=== PATIENT | female | born 1930 | race Caucasian/White ===

== ENCOUNTER 2016-10-07 09:09 | Emergency (ER) | payer MEDICARE, OTHER ==
[~2016-10-07] VITALS: Ht 149.9 cm; Wt 54.5 kg
[~2016-10-07 09:09] MED LIST: CALC-176 PO; CARV25TA97 PO; CHOL2000 PO; CIPR500T4 PO; CLOP75TA27 PO; DEXL60CA2 PO; DOCU-144 PO; ESCI10TA PO; FER325 PO; GLUC15002 PO; HYDR-3670 PO; METF-382 PO; METR500T PO; OMEG-135 PO; OMEP20CA16 PO; VALS160T20 PO; VITA1TAB2 PO; [UNRECOGNIZED DRUG - CODE] PO
[2016-10-07 09:12] VITALS: Ht 149.9 cm; Wt 54.5 kg
[2016-10-07] MEDS ORDERED: ALBUTEROL/IPRATROPIUM (NEB) 3 ML AMP HHN STA (10:21)
[2016-10-07] MEDS ORDERED: ALBUTEROL 0.083% (NEB) 2.5 MG/3 ML AMP ONE (10:39)
--- NOTE | 2016-10-07 11:25 | RADRPT ---
PROCEDURE: XR Chest. CLINICAL INDICATION: Pneumonia TECHNIQUE: Chest PA and lateral COMPARISON: 11/09/2014 FINDINGS: Sternotomy and CABG The mediastinal structures are unremarkable. There is calcification of the thoracic aorta (consiste nt with atherosclerosis). The heart is normal in size and configuration. The pulmonary vascularity is normal. The lung boyd are unremarkable. No consolidation is identified. The pleural spaces are unremarkable. There are senescent changes of the axial skeleton. IMPRESSION: Calcification of the thoracic aorta (consistent with atherosclerosis). No evidence for active cardiopulmonary disease. RPTAT: HGDB .Juan C Alaniz MD, Date Time Electronically viewed and signed by .Juan C Alaniz MD, on 10/07/2016 11:25 .B/
--- NOTE | 2016-10-07 11:47 | ERD ---
ER Documentation Chief Complaint Date/Time DATE: 10/07/16 TIME: 11:30 Chief Complaint cough, vomitting and body aches all night HPI Pleasant 86-year-old female presenting to emergency department with complaint of cough. Patient reports the cough is dry, spasmatic, worse at night. Patient reports symptoms started 3 weeks ago and have progressed to where she is not able to sleep at night. Patient reports headache, neck pain, and body aches are related to coughing intensity. Patient states she coughs so hard last night that she is vomiting. Patient states she was seen by her primary care physician last week and she gives me the medication that was prescribed, medication is Zantac. Patient thought medication was for the cough. Patient does have history of GERD, denies any abdominal pain. Patient denies shortness of breath, chest pain, dyspnea, or dizziness. Patient denies history of asthma, or seasonal allergies. ROS All systems reviewed and are negative except as per history of present illness. Medications Home Meds Active Scripts Docusate Sodium* (Colace*) 100 Mg Capsule, 100 MG PO TID, #30 CAP Prov:JAMEL ANGEL 01/19/16 Metronidazole* (Flagyl*) 500 Mg Tablet, 500 MG PO TID for 7 Days, TAB Prov:JAMEL ANGEL 01/19/16 Ciprofloxacin Hcl* (Ciprofloxacin Hcl*) 500 Mg Tablet, 500 MG PO BID for 7 Days , TAB Prov:JAMEL ANGEL 01/19/16 Clopidogrel Bisulfate (Clopidogrel) 75 Mg Tab, 75 MG PO DAILY for 30 Days, TAB 1 Refill Prov:MAURICIO LION MD 07/23/15 Reported Medications Omeprazole* (Omeprazole*) 20 Mg Capsule.dr, 20 MG PO DAILY Y for PRN, #30 CAP 01/19/16 Hydralazine Hcl* (Hydralazine Hcl*) 10 Mg Tablet, 5 MG PO BID Y for ELEVATED BLOOD PRESSURE, #120 TAB 01/19/16 Ferrous Sulfate* (Ferrous Sulfate*) 325 Mg Tabec, 325 MG PO DAILY, TAB 01/19/16 Fish Oil* (Fish Oil*) 1,000 Mg Cap, 1000 MG PO BID, CAP 01/19/16 Clopidogrel Bisulfate (Clopidogrel) 75 Mg Tablet, 75 MG PO DAILY, #30 TAB 01/19/16 Cholecalciferol* (Vitamin D3*) 2,000 Unit Cap, 2000 UNIT PO DAILY, CAP 11/10/14 Glucosamine Hcl (Glucosamine Hcl) 1,500 Mg Tablet, 1500 MG PO 11/10/14 Vitamin B Complex (Super B Complex) 1 Tab Tablet, 1 TAB PO 11/10/14 Calcium Cmb 2-Mag Cmb 12-Vit D3 (Calcium 500) 1 Each Tablet, 1 TAB PO DAILY, TAB 11/10/14 Multivit-Min/FA/Lutein/Zeaxant (Macular Vitamin Tablet) 1 Each Tablet, 2 EACH PO BID 07/27/14 Dexlansoprazole (Dexilant) 60 Mg , 60 MG PO DAILY, CAP 07/27/14 Escitalopram Oxalate* (Lexapro*) 10 Mg Tablet, 10 MG PO DAILY, TAB 07/07/14 Carvedilol* (Coreg*) 25 Mg Tablet, 25 MG PO BID, TAB 07/07/14 Valsartan* (Diovan*) 160 Mg Tablet, 160 MG PO DAILY, TAB 07/07/14 Metformin Hcl* (Metformin Hcl*) 500 Mg Tablet, 500 MG PO QHS, TAB 07/07/14 Allergies Allergies: Coded Allergies: No Known Allergy (Unverified , 01/19/16) PMhx/Soc History of Surgery: Yes (see above) Anesthesia Reaction: No Hx Neurological Disorder: No Hx Respiratory Disorders: No Hx Cardiac Disorders: Yes (HTN, CAD) Hx Psychiatric Problems: No Hx Miscellaneous Medical Probl: Yes (CAD, HTN, GERD, HLD, DM, CABG, carotid stenosis, diverticulitis,macular deg) Hx Alcohol Use: No Hx Substance Use: No Hx Tobacco Use: No Physical Exam Vitals Vital Signs Date Time Temp Pulse Resp B/P Pulse Ox O2 Delivery O2 Flow Rate FiO2 10/07/16 10:42 79 19 95 21 10/07/16 09:12 98.6 61 22 192/79 98 Vitals stable, nursing notes reviewed Physical Exam Const: No acute distress Head: Atraumatic Eyes: Normal Conjunctiva not injected, no pallor or jaundice. EOMI, PERRLA ENT: Auditory canals are clear, tympanic membranes translucent with positive light reflex, nasal mucosa wet, turbinates pale, pharynx injected, uvula rises and falls with pronation. Neck: Full range of motion..~ No meningismus. Resp: Upper airways clear to auscultation, diminished bases, coughs with deep breathing, no rales rhonchi or wheezing Cardio: Regular rate and rhythm, no murmurs S1-S2, no S3-S4 Abd: Soft, non tender, non distended. Normal bowel sounds Skin: Back: Ext: Neur: Awake and alert Psych: Normal Mood and Affect age appropriate Results 24 hrs Current Medications Medications (Trade) Dose Ordered Sig/Wesly Route PRN Reason Start Time Stop Time Status Last Admin Dose Admin Albuterol/ Ipratropium (Duoneb) 3 ml ONCE STAT HHN 10/07/16 10:21 10/07/16 10:26 DC 10/07/16 10:41 Albuterol (Proventil 0.083% (Neb)) 2.5 mg STK-MED ONCE .ROUTE 10/07/16 10:39 10/07/16 10:40 DC Procedures/MDM PROCEDURE: XR Chest. CLINICAL INDICATION: Pneumonia TECHNIQUE: Chest PA and lateral COMPARISON: 11/09/2014 FINDINGS: Sternotomy and CABG The mediastinal structures are unremarkable. There is calcification of the thoracic aorta (consistent with atherosclerosis). The heart is normal in size and configuration. The pulmonary vascularity is normal. The lung boyd are unremarkable. No consolidation is identified. The pleural spaces are unremarkable. There are senescent changes of the axial skeleton. IMPRESSION: Calcification of the thoracic aorta (consistent with atherosclerosis). No evidence for active cardiopulmonary disease. RPTAT: HGDB .Juan C Alaniz MD, MD Date Time Electronically viewed and signed by .Juan C Alaniz MD, on 10/07/2016 11:25 Pleasant 86-year-old female presents to emergency room department for complaint of cough worsening at night with associated abdominal pain, body aches, and vomiting. All symptoms appeared to be related to severity of coughing per history. Patient currently does not feel ill, has been seen by her primary care physician, was prescribed Zantac for GERD systems. Patient under the impression medication was for her cough. Patient presents to emergency department because medication was not working for cough. Patient has had albuterol/Atrovent treatment while in the emergency department responded well, chest x-ray to rule out pneumonia related to 3 week history. Chest x-ray shows no cardiopulmonary disease, positive atherosclerosis. I feel the patient is stable for discharge at this time, I feel patient will respond to symptomatic treatment and outpatient follow-up for reevaluation by primary care physician. I have discussed results, examination findings, the treatment plan with the patient and family present prior to discharge. Indications for emergent reevaluation, side effects of medication were also discussed. All questions were answered. Patient verbalizes understanding and agrees with plan of care. Departure Diagnosis: Primary Impression: Cough Condition: Good Patient Instructions: Cough, Chronic, Uncertain Cause, (Adult) Additional Instructions: Thank you for for coming to [facility] for your care today. Please ask your nurse or provider if you have questions about your care today and do not leave until all your questions have been answered. Please use any medications given as directed and follow-up with your doctor (or the doctor you were referred to) in the next 2-3 days. If you do not have a primary care doctor you may follow up at the [facility] (listed below). You may also use motrin and tylenol as needed for fever and/or pain unless instructed otherwise by your provider or nurse. Indications for more urgent follow-up have been discussed, but you may return to the Emergency Department at ANY time for any worrisome or worsening symptoms. If you have abdominal pain, please know that no test or exam you received is perfect and you should follow up within 8 hours for continued pain. If you had any imaging studies today, such as an X-Ray or CT Scan, these studies will be reviewed later by a radiologist. You will be called if there are important findings that were not identified today, so make sure the contact information you provided at registration is correct. If you received any narcotic pain control medicine today, such as Vicodin, Morphine or Dilaudid, your coordination and judgment may be affected for a number of hours. Please do not drive or operate heavy machinery, and you may want someone to assist you at home. If you were given a prescription for narcotic medication, be aware that it is very addictive- use sparingly and only if necessary. KELLY SINGH Oct 07, 2016 11:44
[2016-10-07] MEDS ORDERED: ALBU18HF INHALATION (11:50)
[2016-10-07] MEDS ORDERED: FLUT9.9S NASAL (11:50)
[2016-10-07] MEDS ORDERED: INHA1SPA53 MC (11:52)
[2016-10-07 12:32] VITALS: BP 192/89; PULSE 55; RESP 20; TEMP 98.2
== END 2016-10-07 12:35 | disposition home or self-care (01) ==
LOC: FTE 09:09
DX: R05 Cough (principal); I10 Essential (primary) hypertension; I25.10 Atherosclerotic heart disease of native coronary artery without angina pectoris; E11.9 Type 2 diabetes mellitus without complications; Z95.1 Presence of aortocoronary bypass graft; Z79.84 Long term (current) use of oral hypoglycemic drugs
CPT/HCPCS: 71020; 94664

== ENCOUNTER 2017-05-25 08:59 | Day surgery (SDC) | payer MEDICARE, OTHER ==
[~2017-05-25] VITALS: Ht 147.3 cm; Wt 55.9 kg
[2017-05-25] VITALS (19 sets, daily range): BP systolic 141–191; BP diastolic 41–78; PULSE 54–60; RESP 12–31; Ht 147.3 cm; Wt 55.9 kg
[~2017-05-25 08:59] MED LIST changes: +ALBU18HF INHALATION; +FLUT9.9S NASAL; +INHA1SPA53 MC; -METF-382 PO; +METF500T4 PO
[2017-05-25] MEDS ORDERED: DENO60DI SQ (10:00)
[2017-05-25] MEDS ORDERED: VALS320T11 PO (10:04)
--- NOTE | 2017-05-25 10:04 | CONS ---
Date/Time of Note Date/Time of Note DATE: 05/25/17 TIME: 09:55 Assessment/Plan Assessment/Plan Problems: (1) Headache Status: Acute Comment: Headache with elevated sed rate suspicious for Temporal Arteritis. Scheduled for Temporal Artery biopsy as outpatient. Additional Assessment/Plan Patient is a low risk candidate for this procedure. Proceed as planned. Consultation Date/Type/Reason Admit Date/Time Date of Consultation: Apr 24, 2017 Type of Consultation: MedicalClearance for Biopsy Reason for Consultation Headache Referring Provider: LAKESHA ALMANZA MD 86 year old woman well known to me with complaint of intractable headache for [address] scan of the head was negative. She was seen by her executive vice president and chief financial officer and an ESR was sent and noted to be mildly elevated. She was started on prednisone and it was recommended that she have a biopsy of the Temporal Artery. Past Medical History Medical History: coronary artery disease, diabetes, diverticulitis, GERD, hypertension Past Surgical History Past Surgical Hx: coronary bypass surgery, other (endarterectomy) Family History Significant Family History: no pertinent family hx Social History Alcohol Use: none Smoking Status: Never smoker Drug Use: none Other Social History and lives with son Exam/Review of Systems Exam Constitutional: oriented Head: normocephalic, other (Tender to palpation over temporal artery) Eyes: EOMI, nl conjunctiva Neck: supple Cardiovascular: regular rate and rhythm, systolic murmur Gastrointestinal: soft Extremities: normal pulses Neurological: other (grossly intact) Skin: nl turgor Results Results 24 hrs Laboratory Tests Test 05/25/17 09:47 Bedside Glucose 99 ANGELA MALONE MD May 25, 2017 10:04
--- NOTE | 2017-05-25 10:24 | RADRPT ---
PROCEDURE: XR Chest. CLINICAL INDICATION: Preoperative. TECHNIQUE: Single frontal view. COMPARISON: 10/07/2016. FINDINGS: The lungs are clear. The heart is enlarged. There are sternal wires and mediastinal clips. Calcification is present in th e aorta consistent with atherosclerosis. There is no pleural effusion. There is no pneumothorax. IMPRESSION: 1. Cardiomegaly and atherosclerosis. 2. Previous median sternotomy. 3. Clear lungs. RPTAT: QQ .Rocky Malave MD, MD Date Time Electronically viewed and signed by .Rocky Malave MD, MD on 05/25/2017 10:23 .R/
[2017-05-25] MEDS ORDERED: hydrALAzine 20 MG INJ IV ONE (10:30)
[2017-05-25] MEDS ORDERED: LIDOCAINE 1% (MPF) 30 ML INJ INJ ONE (10:45)
[2017-05-25] MEDS ORDERED: BUPIVACAINE 0.5% (MPF) 30 ML INJ INJ ONE (10:45)
[2017-05-25] MEDS ORDERED: FENTAnyl 50 MCG/ML VIAL ONE (10:58)
[2017-05-25] MEDS ORDERED: MIDAZOLAM 1 MG/ML 2 ML INJ ONE (10:58)
[2017-05-25] MEDS ORDERED: LIDOCAINE 1% (MPF) 30 ML INJ ONE (11:00)
[2017-05-25] MEDS ORDERED: BUPIVACAINE 0.5% (SDV) 30 ML INJ ONE (11:00)
[2017-05-25] MEDS ORDERED: FENTAnyl 50 MCG/ML VIAL IV PRN ×2 (11:00)
[2017-05-25] MEDS ORDERED: LABETALOL HCL 20MG INJ IV PRN (11:00)
[2017-05-25] MEDS ORDERED: hydrALAzine 20 MG INJ IV PRN (11:00)
[2017-05-25] MEDS ORDERED: ONDANSETRON 4 MG INJ IV PRN ×2 (11:00→13:30)
[2017-05-25] MEDS ORDERED: CEFAZOLIN 1 GM INJ ONE (11:01)
--- NOTE | 2017-05-25 11:04 | HPN ---
Date/Time of Note Date/Time of Note DATE: 05/25/17 TIME: 11:04 Interval H&P Admission Note Pt. seen H&P reviewed: No system changes LAKESHA ALMANZA MD May 25, 2017 11:04
--- NOTE | 2017-05-25 12:55 | OPR ---
Date/Time of Note Date/Time of Note DATE: 05/25/17 TIME: 12:42 Operative Report Procedure Date: May 25, 2017 Preoperative Diagnosis 1. Left-sided headache with worsening vision 2. Elevated sed rate 3. Suspicion for temporal arteritis Postoperative Diagnosis 1. Left-sided headache with worsening vision 2. Elevated sed rate 3. Suspicion for temporal arteritis Operation/Procedure Performed 1. Excision of left temporal artery, 2 cm 2. Local anesthetic injection, [id number] Surgeon Maximino Gregory MD Field Agronomist Malika Mayer NP Anesthesia Type: general (Plus local) Estimated Blood Loss: 0 - 10 ml's Transfusion none Specimen Left temporal artery, 2 cm Grafts/Implants none Tubes/Drains None Complications none Pt Condition Post Procedure: stable Disposition: PACU Indications 86-year-old female with worsening headaches elevated sed rate and decreased vision on the left side. Patient is referred by Dr. Malone for evaluation and temporal artery biopsy. She is already been started on steroids as of 2 days ago. Risks, benefits, alternatives were fully explained to patient. She is advised to since on steroids and Plavix she has a high rate of bleeding and wound complications, chronic pain, hematoma, seroma, abscess, facial nerve injury, need for further surgeries, [place], stroke, PE, DVT, pneumonia, organ failures, or even . Patient fully understands like to proceed with surgery Procedure Description Patient was brought in and placed supine on the operating table. Preoperative antibiotics were administered. All pressure points were well-padded. The left face was prepped and draped sterilely and timeout was performed. After induction of anesthesia, local anesthetic without epi was administered after the artery was palpated and mapped out. Incision was made through skin and subcutaneous tissue. The artery was identified and pulsatile. Doppler was used to confirm the artery. 2 cm segment of the artery was identified ligated on either end and the artery excised and sent to pathology and formaldehyde as advised by pathology. Wound was fully irrigated and completely hemostatic. Wound was closed in multiple layers, with 2-0 Vicryl subcutaneous followed by 2 oh dermal followed by 4-0 Monocryl subcuticular. Dermabond and Steri-Strips were applied. Patient was recovered and taken back to PACU in stable condition. All counts were correct at the end the operation 2. Copies To: CC: ANGELA MALONE MD, SAMUEL MD May 25, 2017 12:55
--- NOTE | 2017-05-25 12:55 | OPR ---
Date/Time of Note Date/Time of Note DATE: 05/25/17 TIME: 12:42 Operative Report Procedure Date: May 25, 2017 Preoperative Diagnosis 1. Left-sided headache with worsening vision 2. Elevated sed rate 3. Suspicion for temporal arteritis Postoperative Diagnosis 1. Left-sided headache with worsening vision 2. Elevated sed rate 3. Suspicion for temporal arteritis Operation/Procedure Performed 1. Excision of left temporal artery, 2 cm 2. Local anesthetic injection, [id number] Surgeon Maximino Gregory MD Provider Education Specialist Malika Mayer NP Anesthesia Type: general (Plus local) Estimated Blood Loss: 0 - 10 ml's Transfusion none Specimen Left temporal artery, 2 cm Grafts/Implants none Tubes/Drains None Complications none Pt Condition Post Procedure: stable Disposition: PACU Indications 86-year-old female with worsening headaches elevated sed rate and decreased vision on the left side. Patient is referred by Dr. Malone for evaluation and temporal artery biopsy. She is already been started on steroids as of 2 days ago. Risks, benefits, alternatives were fully explained to patient. She is advised to since on steroids and Plavix she has a high rate of bleeding and wound complications, chronic pain, hematoma, seroma, abscess, facial nerve injury, need for further surgeries, [place], stroke, PE, DVT, pneumonia, organ failures, or even . Patient fully understands like to proceed with surgery Procedure Description Patient was brought in and placed supine on the operating table. Preoperative antibiotics were administered. All pressure points were well-padded. The left face was prepped and draped sterilely and timeout was performed. After induction of anesthesia, local anesthetic without epi was administered after the artery was palpated and mapped out. Incision was made through skin and subcutaneous tissue. The artery was identified and pulsatile. Doppler was used to confirm the artery. 2 cm segment of the artery was identified ligated on either end and the artery excised and sent to pathology and formaldehyde as advised by pathology. Wound was fully irrigated and completely hemostatic. Wound was closed in multiple layers, with 2-0 Vicryl subcutaneous followed by 2 oh dermal followed by 4-0 Monocryl subcuticular. Dermabond and Steri-Strips were applied. Patient was recovered and taken back to PACU in stable condition. All counts were correct at the end the operation 2. Copies To: CC: ANGELA MALONE MD, SAMUEL MD May 25, 2017 12:55
[2017-05-25] MEDS ORDERED: IBUPROFEN 600 MG TAB PO PRN (13:30)
[2017-05-25] MEDS ORDERED: LACTATED RINGER'S 1,000 ML IV SCH (13:30)
--- NOTE | 2017-05-25 16:56 | RADRPT ---
Vent Rate: 56 bpm RR Interval: 0 msec MS Interval: 166 msec QRS Duration: 78 msec QT Interval: 430 msec QTC Interval: 414 msec P-R-T [place]: 50 - 49 - 93 degrees Sinus bradycardia Septal infarct , age undetermined Abnormal ECG Electronically Signed By: Goyo Felder [id number]
--- NOTE | 2017-05-25 16:56 | RADRPT ---
Vent Rate: 56 bpm RR Interval: 0 msec [place] Interval: 166 msec QRS Duration: 78 msec QT Interval: 430 msec QTC Interval: 414 msec P-R-T [place]: 50 - 49 - 93 degrees Sinus bradycardia Septal infarct , age undetermined Abnormal ECG Electronically Signed By: Goyo Felder [id number]
--- NOTE | 2017-05-25 16:56 | RADRPT ---
Vent Rate: 56 bpm RR Interval: 0 msec [place] Interval: 166 msec QRS Duration: 78 msec QT Interval: 430 msec QTC Interval: 414 msec P-R-T [place]: 50 - 49 - 93 degrees Sinus bradycardia Septal infarct , age undetermined Abnormal ECG Electronically Signed By: Goyo Felder [id number]
== END 2017-05-25 14:42 | disposition home or self-care (01) ==
LOC: SDS 08:59
PROVIDERS: ATTEND Surgery
DX: R51 Headache (principal); I70.8 Atherosclerosis of other arteries; H53.9 Unspecified visual disturbance; R70.0 Elevated erythrocyte sedimentation rate; I25.10 Atherosclerotic heart disease of native coronary artery without angina pectoris; Z95.1 Presence of aortocoronary bypass graft; K21.9 Gastro-esophageal reflux disease without esophagitis; I10 Essential (primary) hypertension
CPT/HCPCS: 37609; 71010; 80048; 82962; 85025; 85610; 85730; 88307; 88313; 93005; J0360; J0690; J2250; J3010